=== PATIENT | male | born 1960 | race Asian ===

== ENCOUNTER → 2019-08-24 | Outpatient (CLI) | payer OTHER ==
[~2019-08-24] MED LIST: AMLO5 PO; ASPI81EC PO; BECL40OI INH; FLUT.05NI; HYDR-86; IBUP800 PO; IPRA.06NI; LISI20 PO; LOVA40 PO; METF500 PO; OMEP40CA12 PO; RANI150 PO
[2019-08-24 18:43] LABS: U Amphetamine Screen Not Detected; U Barbituate Screen Not Detected; U Benzodiazapine Screen Not Detected; U Buprenorphine Screen Not Detected; U Cannabinoids Screen Not Detected; U Cocaine Screen Not Detected; U Methadone Screen Not Detected; U Methamphetamine Screen Not Detected; U Opiates Screen Not Detected; U Oxycodone Screen DETECTED; U Phencyclidine Screen Not Detected; U Propoxyphene Screen Not Detected
== END | disposition home or self-care (01) ==
LOC: OLS 16:45 → LAB SHORT 16:45
PROVIDERS: Internal Medicine
DX: Z51.81 Encounter for therapeutic drug level monitoring (principal); Z79.891 Long term (current) use of opiate analgesic
CPT/HCPCS: G0480